=== PATIENT | male | born 1970 | race Two or more races ===

== ENCOUNTER → 2020-02-11 11:48 | Outpatient (BNVA) | payer OTHER, SELFPAY | PROVIDERS: PCP Physician Assistant Medical; Referring Provider Physician Assistant Medical; Visit Provider Internal Medicine Gastroenterology | DX: R10.33 Periumbilical pain (principal); G89.29 Other chronic pain | CPT/HCPCS: 99212 ==

== ENCOUNTER 2020-04-21 12:00 | Outpatient (REF) | payer OTHER, SELFPAY ==
[2020-04-21 14:15] LABS: C Reactive Protein 0.14 mg/dL (< or = 0.50)
[2020-04-21 14:28] LABS: Erythrocyte Sedimentation Rate 3 MM/HR (0-15)
[2020-04-22 20:58] LABS: IgA 478 mg/dL (47-310); IgG 1159 mg/dL (600-1640); IgM 94 mg/dL (50-300)
[2020-04-23 15:48] LABS: Transglutaminase Ab IgG 6 U/mL; Transglutaminase IgA 1 U/mL
[2020-04-24 11:27] LABS: Immunoglobulin G Subclass 1 646 mg/dL (382-929); Immunoglobulin G Subclass 2 306 mg/dL (241-700); Immunoglobulin G Subclass 3 19 mg/dL (22-178); Immunoglobulin G Subclass 4 33.2 mg/dL (4-86); Immunoglobulin G Total 1127 mg/dL (600-1640)
[2020-04-28 22:12] LABS: Histamine Plasma <1.5 ng/mL (< OR = 1.8)
== END 2020-04-21 12:01 | disposition home or self-care (01) ==
LOC: HO.LAB 12:00
PROVIDERS: PCP Nurse Practitioner Family; Visit Provider Internal Medicine Gastroenterology
DX: R10.33 Periumbilical pain (principal); G89.29 Other chronic pain; R79.89 Other specified abnormal findings of blood chemistry
CPT/HCPCS: 36415; 82784; 83088; 83516; 83520; 85652; 86140

== ENCOUNTER 2020-05-01 12:40 | Outpatient (REF) | payer OTHER, SELFPAY ==
[2020-05-02 16:58] LABS: Immunoglobulin M 101 mg/dL (50-300)
[2020-05-08 22:42] LABS: Pancreatic Elastase-1 >500 mcg/g
[2020-05-09 00:18] LABS: Calprotectin, Fecal 69 mcg/g
== END 2020-05-01 12:41 | disposition home or self-care (01) ==
LOC: HO.LAB 12:40
PROVIDERS: PCP Nurse Practitioner Family; Visit Provider Internal Medicine Gastroenterology
DX: G89.29 Other chronic pain (principal); R10.33 Periumbilical pain
CPT/HCPCS: 36415; 82656; 82784; 83993; 86003

== ENCOUNTER 2020-05-04 13:33 | Outpatient (REF) | payer OTHER, SELFPAY | END 2020-05-04 13:34 | disposition home or self-care (01) | LOC: HO.LAB 13:33 | PROVIDERS: Visit Provider Internal Medicine | DX: Z20.822 Contact with and (suspected) exposure to COVID-19 (principal) | CPT/HCPCS: 36415; C9803; U0003; U0005 ==

== ENCOUNTER 2020-05-29 12:49 | Outpatient (REF) | payer OTHER, SELFPAY ==
[2020-06-02 00:13] LABS: Transglutaminase Ab IgG 6 U/mL; Transglutaminase IgA 1 U/mL
== END 2020-05-29 12:50 | disposition home or self-care (01) ==
LOC: HO.LAB 12:49
PROVIDERS: Visit Provider Internal Medicine Gastroenterology
DX: G89.29 Other chronic pain (principal); R10.33 Periumbilical pain
CPT/HCPCS: 36415; 83516

== ENCOUNTER → 2020-06-08 13:42 | Outpatient (BNVA) | payer OTHER, SELFPAY | PROVIDERS: PCP Nurse Practitioner Family; Visit Provider Internal Medicine Gastroenterology ==

== ENCOUNTER 2020-06-11 12:03 | Outpatient (REF) | payer OTHER, SELFPAY ==
[2020-06-15 15:17] LABS: Transglutaminase Ab IgG 4 U/mL; Transglutaminase IgA 1 U/mL
== END 2020-06-11 12:04 | disposition home or self-care (01) ==
LOC: HO.LAB 12:03
PROVIDERS: Visit Provider Internal Medicine Gastroenterology
DX: R10.33 Periumbilical pain (principal); G89.29 Other chronic pain; R89.4 Abnormal immunological findings in specimens from other organs, systems and tissues
CPT/HCPCS: 36415; 81382; 83516

== ENCOUNTER → 2020-09-08 11:19 | Outpatient (BNVA) | payer OTHER, SELFPAY | PROVIDERS: PCP Nurse Practitioner Family; Visit Provider Internal Medicine Gastroenterology ==

== ENCOUNTER → 2021-02-19 10:51 | Outpatient (BNVA) | payer OTHER, SELFPAY | PROVIDERS: PCP Nurse Practitioner Family; Visit Provider Internal Medicine Gastroenterology ==

== ENCOUNTER → 2022-01-03 13:55 | Outpatient (BNVA) | payer OTHER, SELFPAY | PROVIDERS: PCP Nurse Practitioner Family; Visit Provider Internal Medicine Gastroenterology | DX: R10.13 Epigastric pain (principal) | CPT/HCPCS: 99212 ==

== ENCOUNTER → 2022-05-09 12:45 | Outpatient (BNVA) | payer OTHER, SELFPAY | PROVIDERS: PCP Nurse Practitioner Family; Visit Provider Internal Medicine Gastroenterology | DX: R10.33 Periumbilical pain (principal); R10.9 Unspecified abdominal pain | CPT/HCPCS: 99212 ==

== ENCOUNTER 2023-01-02 11:34 | Outpatient (REF) | payer OTHER, SELFPAY ==
[2023-01-02 13:08] LABS: MANUAL DIFF FLAG NO
[2023-01-02 13:48] LABS: Basophils Percent Auto 0.5 % (0-2); Eosinophils Percent Auto 0.6 % (0-4); Hematocrit 44.1 % (42.0-52.0); Hemoglobin 14.4 g/dl (14.0-18.0); Imm Gran Abs Auto 0.02 X10*3/uL (0.00-0.03); Imm Gran Pct Auto 0.3 % (0.0-0.4); Lymphocytes Percent Auto 30.8 % (20-40); Mean Corpuscular HGB Conc 32.7 g/dl (31.0-36.0); Mean Corpuscular Hemoglobin 28.9 pg (27.0-33.0); Mean Corpuscular Volume 88.4 fL (80.0-98.0); Monocytes Absolute Auto 0.6 X10*3/uL (0.1-1.2); Neutrophils Absolute Auto 3.7 x10*3/uL (2.0-8.3); Neutrophils Percent Auto 58.8 % (45-73); Platelet Count 224 X10*3/uL (160-400); Red Blood Count 4.99 X10*6/uL (4.60-5.80); Red Cell Distribution Width 11.9 % (11.0-16.0); White Blood Count 6.3 X10*3/uL (4.8-10.8)
[2023-01-02 14:15] LABS: Alanine Aminotransferase 18 U/L (0-40); Albumin Level 4.5 g/dL (3.5-5.0); Alkaline Phosphatase 69 U/L (39-117); Anion Gap 13 (12-20); Aspartate Amino Transferase 21 U/L (5-37); Bilirubin Total 1.5 mg/dL (0.0-1.0); Blood Urea Nitrogen 21 mg/dL (9-16); C Reactive Protein 0.13 mg/dL (< or = 0.50); Carbon Dioxide 30 mmol/L (22-29); Chloride 103 mmol/L (96-108); Estimated Glomerular Filt Rate > 60; Glucose Random 87 mg/dL (60-115); Potassium 4.2 mmol/L (3.3-5.1); Sodium 142 mmol/L (135-145); Total Protein 7.6 g/dL (6.5-8.0)
[2023-01-02 14:20] LABS: Erythrocyte Sedimentation Rate 3 MM/HR (0-15)
[2023-01-02 14:34] LABS: Ferritin 116 ng/mL (20-250); Vitamin D 25-OH Total 37.8 ng/mL (>30)
[2023-01-02 14:45] LABS: Folate 13.8 ng/mL (> or = 4.0); Vitamin B12 316 pg/mL (200-900)
== END 2023-01-02 11:35 | disposition home or self-care (01) ==
LOC: HO.XRAY 11:34
PROVIDERS: PCP Nurse Practitioner Family; Visit Provider Internal Medicine Gastroenterology
DX: R10.33 Periumbilical pain (principal); G89.29 Other chronic pain; K75.81 Nonalcoholic steatohepatitis (NASH)
CPT/HCPCS: 36415; 74018; 80053; 82306; 82607; 82728; 82746; 85025; 85652; 86140; 99212

== ENCOUNTER 2023-01-02 11:34 | Outpatient (AMB) | payer OTHER, SELFPAY ==
--- NOTE | 2023-01-02 11:35 | A.OFFVIS_ITS ---
Intake Vital Signs 01/02/23 11:37 Height 5 ft 8 in Weight 171 lb 15.369 oz BMI 26.1 BP 115/68 Blood Pressure Location Lt brachial Position Sitting Pulse 63 Intake Visit Reasons: 8 month follow up Intake Note: Darinel presents in the office as a 8 month follow up. CC: He states the pain comes and goes as always. Allergies No Known Allergies [No Known Allergies*] Allergy (Verified 01/02/23 11:38) HPI 8 month follow up HPI Details 52-year-old gentleman w migraines, depre ssion, chronci back pain, s/p spinal stimulator seen for f/u?? ? RECAP: originally pt of [facility]: ? Pt had EGD/colon 2017-study performed for epigastric pain. biopsies on the endoscopy were revealed positive for H pylori and patient was started on treatment in February with a follow-up stool study to prove H pylori eradication which was negative. colon bx were negative ? Patient followed up in April and stated that he was feeling well. Occ heartburn wt prn zantac use ? Came back in 08/2018 and was c/o epigastric pain w certain food e.e pancakes ? CTe 04/2019--no evidence of IBD, stool in colon ? was given trial of bentyl ? VCE- 09/2019--erosive gastritis ? He was changed to protonix and famotidine was stopped ? he was supposed to get MRe (couldn;t get Mre due to spinal stimulator) celiac ab mildly elevated 6 x 2 occasions--neg gene markers rast pos for various food allergies, he has the list INTERIM: He felt well for a long time pain attacks came back a month ago around the same area, ie periumbilical areas only had x 2 attacks he felt it was like trapped gas, sometimes gets dizzy appetite is good no nausea, no weight loss no diarrhea or constipation no rectal bleeding bently continues to help EXAM: GENERAL: The patient is well developed and nontoxic. VITAL SIGNS:see workflow HEENT: Nonicteric sclerae, PERRLA, EOMI. Oropharynx clear. Moist mucous membranes. Conjunctivae appear well perfused. No thyroid mass. CHEST: Chest wall is nontender. HEART: Regular rate and rhythm without murmurs. LUNGS: Clear to auscultation bilaterally. ABDOMEN: Soft, positive bowel sounds, tender right flank, suprapubic area, no organomegaly. SKIN: No rash, no excessive bruising, petechiae, or purpura. NEUROLOGIC: Cranial nerves II-XII intact without motor/sensory deficit. psych--nml Assessment & Plan (1) right flank and periumbilical pain, uncertain etiology but improved with passing gas and bently DX: enteritis, IBD-subacute PLAN: 1/ cont with meds as doing, can take an extra bentyl as needed, will get KUB, and labs if any abnormalities then MRe 2/ high fiber diet with fluids ? PFSH Medical History Hx of nephrolithotomy with removal of calculi Surgical History H/O colonoscopy History of esophagogastroduodenoscopy (EGD) H/O Spinal surgery Family History Mother High cholesterol HTN (hypertension) Diabetes Father Cancer Social History Household Members: Spouse Alcohol intake: current Alcohol intake frequency: does not drink Physical Exam Vital Signs: Last Vital Signs Pulse 63 01/02/23 11:37 BP 115/68 01/02/23 11:37 BMI result Body Mass Index 26.1 Assessment & Plan Assessment & Plan (1) Periumbilical pain, chronic: Code(s): R10.33 - Periumbilical pain; G89.29 - Other chronic pain Orders: Orders Complete Blood Count Auto Diff Today G89.29 - Other chronic pain, R10.33 - Periumbilical pain Comprehensive Met. Panel Today G89.29 - Other chronic pain, K75.81 - Nonalcoholic steatohepatitis (AL[place]ANDER), R10.33 - Periumbilical pain C Reactive Protein Today G89.29 - Other chronic pain, R10.33 - Periumbilical pain Vitamin B12 and Folate Today G89.29 - Other chronic pain, R10.33 - Periumbilical pain Ferritin Today G89.29 - Other chronic pain, R10.33 - Periumbilical pain Vitamin D 25-OH Total Today G89.29 - Other chronic pain, R10.33 - Periumbilical pain XR KUB Today G89.29 - Other chronic pain, R10.33 - Periumbilical pain Erythrocyte Sedimentation Rate Today G89.29 - Other chronic pain, R10.33 - Periumbilical pain Lactoferrin, Fecal, Quant. Today K51.50 - Left sided colitis without comp lications Coding Level of Care Code Est Pt Level 3 (77688) Diagnoses Periumbilical pain, chronic R10.33; G89.29
[2023-01-02 11:37] VITALS: BP 115/68; PULSE 63; BMI 26.1
== END 2023-01-02 12:31 | disposition home or self-care (01) ==
PROVIDERS: PCP Nurse Practitioner Family; Visit Provider Internal Medicine Gastroenterology
DX: R10.33 Periumbilical pain (principal); G89.29 Other chronic pain
CPT/HCPCS: 99213

== ENCOUNTER 2023-10-02 14:40 | Outpatient (AMB) | payer OTHER, SELFPAY ==
[2023-10-02 14:44] VITALS: BP 128/61; PULSE 63; BMI 27.1
--- NOTE | 2023-10-02 14:44 | MHC.OFFVIS ---
Vital Signs 10/02/23 14:44 Height 5 ft 8 in Weight 178 lb 9.191 oz BMI 27.1 BP 128/61 Blood Pressure Location Lt brachial Position Sitting Pulse 63 Intake Visit Reasons: 6 mo follow up r/s from July 09 Intake Note: Darinel presents in the office as a 6 month follow up. CC: He states that his symptoms are getting worse. Whatever he eats gives him loose stools. He states that he gets pains along with the loose stools. Allergies No Known Allergies [No Known Allergies*] Allergy (Verified 10/02/23 14:48) HPI HPI 6 mo follow up r/s from July 09: Details: 53-year-old gentleman w migraines, depression, chronic back pain, s/p spinal stimulator seen for f/u?? ? RECAP: originally pt of [facility]: ? Pt had EGD/colon 2017-study performed for epigastric pain. biopsies on the endoscopy were revealed positive for H pylori and patient was started on treatment in February with a follow-up stool study to prove H pylori eradication which was negative. colon bx were negative ? Patient followed up in April and stated that he was feeling well. Occ heartburn wt prn zantac use ? Came back in 08/2018 and was c/o epigastric pain w certain food e.e pancakes ? CTe 04/2019--no evidence of IBD, stool in colon ? was given trial of bentyl ? VCE- 09/2019--erosive gastritis ? He was changed to protonix and famotidine was stopped ? he was supposed to get MRe (couldn;t get Mre due to spinal stimulator) celiac ab mildly elevated 6 x 2 occasions--neg gene markers rast pos for various food allergies, he has the list INTERIM: he has post prandial urgency can be any type of food going on for 1 month avoiding allergens no nausea, or vomiting still has cleve umbilical pain, worse with food EXAM: GENERAL: The patient is well developed and nontoxic. VITAL SIGNS:see workflow HEENT: Nonicteric sclerae, PERRLA, EOMI. Oropharynx clear. Moist mucous membranes. Conjunctivae appear well perfused. No thyroid mass. CHEST: Chest wall is nontender. HEART: Regular rate and rhythm without murmurs. LUNGS: Clear to auscultation bilaterally. ABDOMEN: Soft, positive bowel sounds, tender right flank, suprapubic area, no organomegaly. SKIN: No rash, no excessive bruising, petechiae, or purpura. NEUROLOGIC: Cranial nerves II-XII intact without motor/sensory deficit. psych--nml Assessment & Plan (1) Post prandial diarrhea, periumbilical pain uncertain etiology based on testing thus far PLAN: 1/ repeat CTe 2/ high fiber diet with fluids 3/ stool and blood work incl c diff 4/ trial of TCA in the meantime ? [facility] Medical History Hx of nephrolithotomy with removal of calculi Surgical History H/O colonoscopy History of esophagogastroduodenoscopy (EGD) H/O Spinal surgery Family History Mother High cholesterol HTN (hypertension) Diabetes Father Cancer Social History Household Members: Spouse Alcohol intake: current Alcohol intake frequency: does not drink Physical Exam Vital Signs: Last Vital Signs Pulse 63 10/02/23 14:44 BP 128/61 10/02/23 14:44 BMI result Body Mass Index 27.1 Assessment & Plan Assessment & Plan (1) Periumbilical pain, chronic: Code(s): R10.33 - Periumbilical pain; G89.29 - Other chronic pain Category: Medical Plan: see above Orders: Orders CT enterography Today G89.29 - Other chronic pain, R10.33 - Periumbilical pain GI Panel Today G89.29 - Other chronic pain, R10.33 - Periumbilical pain, R19.7 - Diarrhea, unspecified Giardia Ag Stool EIA Today G89.29 - Other chronic pain, R10.33 - Periumbilical pain Lactoferrin, Fecal, Quant. Today G89.29 - Other chronic pain, K51.50 - Left sided colitis without complications, R10.33 - Periumbilical pain C Reactive Protein Today G89.29 - Other chronic pain, R10.33 - Periumbilical pain Complete Blood Count Auto Diff Today G89.29 - Other chronic pain, R10.33 - Periumbilical pain CDiff Gene PCR Today G89.29 - Other chronic pain, R10.33 - Periumbilical pain, R19.7 - Diarrhea, unspecified Fecal Fat Qualitative Today G89.29 - Other chronic pain, R10.33 - Periumbilical pain Comprehensive Met. Panel Today G89. - Other chronic pain, K75.81 - Nonalcoholic steatohepatitis ([place]), R10.33 - Periumbilical pain Medications: New nortriptyline 10 mg PO BEDTIME 30 caps 1RF Refilled pantoprazole 40 mg PO DAILY 90 days 90 tabs 3RF Coding Level of Care Code Est Pt Level 4 (16098) Diagnoses Periumbilical pain, chronic R10.33;
== END 2023-10-02 15:17 | disposition home or self-care (01) ==
PROVIDERS: PCP Nurse Practitioner Family; Visit Provider Internal Medicine Gastroenterology
DX: R10.33 Periumbilical pain (principal); G89.29 Other chronic pain
CPT/HCPCS: 99214

== ENCOUNTER → 2023-10-02 14:40 | Outpatient (BNVA) | payer OTHER, SELFPAY | PROVIDERS: PCP Nurse Practitioner Family; Visit Provider Internal Medicine Gastroenterology | DX: R10.33 Periumbilical pain (principal); G89.29 Other chronic pain | CPT/HCPCS: 99212 ==

== ENCOUNTER 2023-11-15 10:44 | Outpatient (REF) | payer OTHER, SELFPAY ==
[2023-11-15 10:55] LABS: MANUAL DIFF FLAG NO
[2023-11-15 12:55] LABS: Alanine Aminotransferase 21 U/L (0-40); Albumin Level 4.5 g/dL (3.5-5.0); Alkaline Phosphatase 74 U/L (39-117); Anion Gap 10 (12-20); Aspartate Amino Transferase 22 U/L (5-37); Bilirubin Total 1.6 mg/dL (0.0-1.0); Blood Urea Nitrogen 14 mg/dL (9-16); C Reactive Protein 0.11 mg/dL (< or = 0.50); Calcium 9.7 mg/dL (8.4-10.2); Carbon Dioxide 30 mmol/L (22-29); Chloride 103 mmol/L (96-108); Estimated Glomerular Filt Rate > 60; Glucose Random 99 mg/dL (60-115); Potassium 4.4 mmol/L (3.3-5.1); Sodium 139 mmol/L (135-145); Total Protein 7.7 g/dL (6.5-8.0)
[2023-11-15 13:38] LABS: Basophils Percent Auto 0.5 % (0-2); Eosinophils Absolute Auto 0.1 X10*3/uL (0.0-0.4); Eosinophils Percent Auto 0.9 % (0-4); Hematocrit 45.3 % (42.0-52.0); Imm Gran Abs Auto 0.02 X10*3/uL (0.00-0.03); Imm Gran Pct Auto 0.4 % (0.0-0.4); Lymphocytes Absolute Auto 1.4 X10*3/uL (1.2-4.9); Lymphocytes Percent Auto 24.5 % (20-40); Mean Corpuscular HGB Conc 33.1 g/dl (31.0-36.0); Mean Corpuscular Hemoglobin 28.7 pg (27.0-33.0); Mean Corpuscular Volume 86.8 fL (80.0-98.0); Mean Platelet Volume 10.5 fL (9.4-12.4); Monocytes Absolute Auto 0.6 X10*3/uL (0.1-1.2); Monocytes Percent Auto 11.1 % (2-11); Neutrophils Absolute Auto 3.6 x10*3/uL (2.0-8.3); Neutrophils Percent Auto 62.6 % (45-73); Platelet Count 214 X10*3/uL (160-400); Red Blood Count 5.22 X10*6/uL (4.60-5.80); Red Cell Distribution Width 11.9 % (11.0-16.0); White Blood Count 5.7 X10*3/uL (4.8-10.8)
== END 2023-11-15 10:45 | disposition home or self-care (01) ==
LOC: HO.LAB 10:44
PROVIDERS: PCP Nurse Practitioner Family; Visit Provider Internal Medicine Gastroenterology
DX: R10.33 Periumbilical pain (principal); G89.29 Other chronic pain; K75.81 Nonalcoholic steatohepatitis (NASH)
CPT/HCPCS: 36415; 80053; 85025; 86140

== ENCOUNTER 2023-11-23 14:57 | Outpatient (REF) | payer OTHER, SELFPAY ==
--- NOTE | ~2023-11-23 | CT_ITS ---
EXAMINATION: CT ENTEROGRAPHY ABDOMEN AND PELVIS WITH CONTRAST CLINICAL INFORMATION: Periumbilical pain. COMPARISON: September 24, 2021 TECHNIQUE: Study performed with oral VoLumen (1350 mL) and 480 mL of water to distend the abdomen. The patient was injected with 85 mL Omnipaque 350 intravenous contrast which was administered without adverse effect. Coronal and sagittal reformatted images were obtained at the technologist's workstation. This CT examination was performed using dose optimization techniques as appropriate, variously including the following: *Automated exposure control *Adjustment of mA and/or kV according to patient size (this includes techniques or standardized protocols for targeted exams where dose is matched to indication/reason for exam; i.e. extremities or head) *Use of iterative reconstruction technique DLP: 419 mGy-cm FINDINGS: GASTROINTESTINAL FINDINGS: Stomach: Satisfactorily distended and unremarkable in appearance. Small hiatal hernia. Small intestine: Underdistended. No small bowel obstruction. No mucosal hyperenhancement. Large intestine: Wall thickening and submucosal hyperenhancement of the rectosigmoid colon. There is diffuse engorgement of the vasa recta. The colon is mostly fluid-filled. No perirectal changes. Appendix is within normal limits. Additional findings: No significant mesenteric or retroperitoneal lymphadenopathy is seen. No abdominal abscess or fistulous tract demonstrated. ABDOMINAL AND PELVIC CT FINDINGS: Liver, gallbladder, biliary tract: The liver is normal in size and contour. No biliary ductal dilatation. No suspicious hepatic lesion. The gallbladder is surgically absent. Pancreas: Unremarkable. Spleen: Unremarkable. Adrenal glands and kidneys: Unremarkable. Ureters and bladder: Unremarkable. Lymphovascular structures: No bulky lymphadenopathy. Normal caliber abdominal aorta. Bones: 1.4 cm periarticular sclerotic focus in the right iliac wing. Lung bases: No pleural pericardial effusion. CT/CT enterography IMPRESSION: Wall thickening and submucosal hyperenhancement of the rectosigmoid colon. There is diffuse engorgement of the vasa recta. The colon is mostly fluid-filled. Findings likely representing colitis. Infectious and inflammatory etiologies should be considered. Electronically signed by: Chalino Barkley MD 12/21/2023 10:23 AM EDT
[2023-11-23] MEDS: iohexoL 350 MG/ML 100 ML INFUS..BTL IV (16:14)
[2023-11-23] MEDS: Sorbitol/Mannit/Xanth Imaging 500 ML LIQUID 1500 ML PO (16:15)
== END 2023-11-23 14:58 | disposition home or self-care (01) ==
LOC: HO.CT 14:57
PROVIDERS: PCP Nurse Practitioner Family; Visit Provider Internal Medicine Gastroenterology
DX: R10.33 Periumbilical pain (principal); G89.29 Other chronic pain
CPT/HCPCS: 74177; Q9967

== ENCOUNTER 2023-12-22 12:40 | Outpatient (REF) | payer OTHER, SELFPAY ==
[2023-12-30 23:15] LABS: Lactoferrin, Fecal, Quant. <6.25 mcg/mL (<7.25)
== END 2023-12-22 12:41 | disposition home or self-care (01) ==
LOC: HO.LNP 12:40
PROVIDERS: Visit Provider Internal Medicine Gastroenterology
DX: K51.50 Left sided colitis without complications (principal)
CPT/HCPCS: 83631

== ENCOUNTER 2024-02-12 14:04 | Outpatient (AMB) | payer OTHER, SELFPAY ==
--- NOTE | 2024-02-12 14:06 | MHC.OFFVIS ---
Vital Signs 02/12/24 14:07 Height 5 ft 8 in Weight 187 lb 6.287 oz BMI 28.5 BP 115/64 Blood Pressure Location Lt brachial Position Sitting Pulse 86 Intake Visit Reasons: 4 month follow up Intake Note: Darinel presents in the office as a 4 month follow up. CC: no concerns just a routine follow up. Allergies No Known Allergies [No Known Allergies*] Allergy (Verified 02/12/24 14:07) HPI HPI 4 month follow up: Details: 53-year-old gentleman w migraines, depression, chronic back pain, s/p spinal stimulator seen for f/u?? ? RECAP: originally pt of [facility]: ? Pt had EGD/colon 2018-study performed for epigastric pain. biopsies on the endoscopy were revealed positive for H pylori and patient was started on treatment in February with a follow-up stool study to prove H pylori eradication which was negative. colon bx were negative ? Patient followed up in April and stated that he was feeling well. Occ heartburn wt prn zantac use ? Came back in 08/2018 and was c/o epigastric pain w certain food e.e pancakes ? CTe 04/2019--no evidence of IBD, stool in colon ? was given trial of bentyl ? VCE- 09/2019--erosive gastritis ? He was changed to protonix and famotidine was stopped ? he was supposed to get MRe (couldn;t get Mre due to spinal stimulator) celiac ab mildly elevated 6 x 2 occasions--neg gene markers rast pos for various food allergies, he has the list CTe: colitis rectosigmoid calprotectin- neg INTERIM: he is happy with apriso, no GI sx no abdominal pain no urgency no nausea, or vomiting EXAM: GENERAL: The patient is well developed and nontoxic. VITAL SIGNS:see workflow HEENT: Nonicteric sclerae, PERRLA, EOMI. Oropharynx clear. Moist mucous membranes. Conjunctivae appear well perfused. No thyroid mass. CHEST: Chest wall is nontender. HEART: Regular rate and rhythm without murmurs. LUNGS: Clear to auscultation bilaterally. ABDOMEN: Soft, positive bowel sounds, non tender, no organomegaly. SKIN: No rash, no excessive bruising, petechiae, or purpura. NEUROLOGIC: Cranial nerves II-XII intact without motor/sensory deficit. psych--nml Assessment & Plan (1) Post prandial diarrhea, periumbilical pain uncertain etiology, CTe with colitis, on apriso with improvement PLAN: 1/ cont with apriso 2/ check labs periodically REPLACED BY [facility] Medical History Hx of nephrolithotomy with removal of calculi Surgical History H/O colonoscopy History of esophagogastroduodenoscopy (EGD) H/O Spinal surgery Family History Mother High cholesterol HTN (hypertension) Diabetes Father Cancer Social History Household Members: Spouse Alcohol intake: current Alcohol intake frequency: does not drink Physical Exam Vital Signs: Last Vital Signs Pulse 86 02/12/24 14:07 BP 115/64 02/12/24 14:07 BMI result Body Mass Index 28.5 Assessment & Plan Assessment & Plan (1) Periumbilical pain, chronic: Code(s): R10.33 - Periumbilical pain; G89.29 - Other chronic pain Category: Medical Plan: see above Coding Level of Care Code Est Pt Level 3 (42105) Diagnoses Periumbilical pain, chronic R10.33; G89.29
[2024-02-12 14:07] VITALS: BP 115/64; PULSE 86; BMI 28.5
== END 2024-02-12 14:58 | disposition home or self-care (01) ==
PROVIDERS: PCP Nurse Practitioner Family; Visit Provider Internal Medicine Gastroenterology
DX: R10.33 Periumbilical pain (principal); G89.29 Other chronic pain
CPT/HCPCS: 99213

== ENCOUNTER → 2024-02-12 14:04 | Outpatient (BNVA) | payer OTHER, SELFPAY | PROVIDERS: PCP Nurse Practitioner Family; Visit Provider Internal Medicine Gastroenterology | DX: R10.33 Periumbilical pain (principal); G89.29 Other chronic pain; Z96.82 Presence of neurostimulator | CPT/HCPCS: 99212 ==